=== PATIENT | female | born 1935 | race Caucasian/White ===

== ENCOUNTER 2021-08-04 15:44 | Emergency (ER) | payer MEDICARE ==
[~2021-08-04] VITALS: Ht 167.6 cm; Wt 118.8 kg
[2021-08-04] MEDS ORDERED: SODIUM CHLORIDE 0.9% 1000ML 1,000 ML IV ONE (17:45)
[2021-08-04] MEDS ORDERED: ACETAMINOPHEN 325 MG TAB PO ONE (17:45)
[2021-08-04 17:54] LABS: BASOPHILS % 0.5 % (0.0-1.0); EOSINOPHILS % 0.5 % (0.0-6.0); HEMATOCRIT 31.7 % (34.2-44.1); HEMOGLOBIN 9.8 g/dL (12.0-16.0); LYMPHOCYTES # (AUTO) 0.5 (1.0-3.2); LYMPHOCYTES % 6.1 % (18.0-39.1); MEAN CORPUSCULAR HEMOGLOBIN 28.3 pg (28-32); MEAN CORPUSCULAR HGB CONC 30.9 g/dL (31-35); MEAN CORPUSCULAR VOLUME 91.6 fL (81-99); MONOCYTES # (AUTO) 0.6 (0.2-0.8); MONOCYTES % 7.4 % (4.4-11.3); NEUTROPHILS # (AUTO) 7.1 (2.1-6.9); PLATELET COUNT 157 x10e3/uL (140-360); RED BLOOD COUNT 3.46 x10e6/uL (3.6-5.1); RED CELL DISTRIBUTION WIDTH 15.3 % (11.7-14.4)
[2021-08-04 18:02] LABS: INR 1.24; PROTHROMBIN TIME 16.7 seconds (11.9-14.5)
[2021-08-04 18:03] LABS: PARTIAL THROMBOPLASTIN TIME 29.4 seconds (23.8-35.5)
[2021-08-04 18:12] LABS: ALANINE AMINOTRANSFERASE 18 IU/L (0-55); ALBUMIN 3.4 g/dL (3.5-5.0); ALBUMIN/GLOBULIN RATIO 0.9 (0.8-2.0); ALKALINE PHOSPHATASE 104 IU/L (40-150); ANION GAP 14.1 mmol/L (8-16); BLOOD UREA NITROGEN 23 mg/dL (7-26); BUN/CREATININE RATIO 15 (6-25); CALCIUM 8.3 mg/dL (8.4-10.2); CARBON DIOXIDE 22 mmol/L (22-29); CHLORIDE 106 mmol/L (98-107); CREATINE KINASE 47 IU/L (29-168); CREATININE, SERUM 1.55 mg/dL (0.57-1.11); EST GLOMERULAR FILTRATION RATE 32 ML/MIN (60-); GLUCOSE 117 mg/dL (74-118); POTASSIUM 4.1 mmol/L (3.5-5.1); SODIUM 138 mmol/L (136-145)
[2021-08-04 19:12] LABS: CLARITY,URINE HAZY (CLEAR); COLOR,URINE STRAW (YELLOW); KETONES,URINE NEGATIVE (NEGATIVE); LEUKOCYTE ESTERASE ,URINE SMALL (NEGATIVE); NITRITE,URINE POSITIVE (NEGATIVE); PROTEIN,URINE DIPSTICK 1+ (NEGATIVE); URINE UROBILINOGEN 0.2 mg/dL (0.2 - 1)
[2021-08-04 19:24] LABS: BACTERIA,URINE MANY /HPF
== END 2021-08-04 20:49 | disposition home or self-care (01) ==
LOC: ER 18:06
DX: R50.9 Fever, unspecified (principal); N39.0 Urinary tract infection, site not specified; M54.50 Low back pain, unspecified; I10 Essential (primary) hypertension; E03.9 Hypothyroidism, unspecified; Z20.822 Contact with and (suspected) exposure to COVID-19; R94.31 Abnormal electrocardiogram [ECG] [EKG]; Z95.0 Presence of cardiac pacemaker; Z87.442 Personal history of urinary calculi
CPT/HCPCS: 36415; 71045; 80053; 81001; 82550; 82553; 83605; 84484; 85025; 85610; 85730; 87040; 87086; 93005; 99284; J0696; J7030; U0002; 87186